=== PATIENT | female | born 1945 | race Asian ===

== ENCOUNTER 2018-01-29 06:53 | Day surgery (SDC) | payer OTHER ==
[2018-01-28 14:36] VITALS: BMI 25.3
[2018-01-29] MEDS ORDERED: LIDOCAINE HCL 2% (20ML MULTI-DOSE VIAL) NR ONE (07:49)
[2018-01-29] MEDS ORDERED: PROPOFOL 20 ML ONE ×2 (07:49)
[2018-01-29 09:01] VITALS: TEMP 97.8
[2018-01-29 10:06] VITALS: BP 121/66; PULSE 61
--- NOTE | 2018-01-30 15:45 | PATH ---
Surgical Pathology Report Patient Name: TORIE VELIZ [facility]. Rec. #: [id number] /Age/Gender: 1945 (Age: 72) / F Account: [id number] Location: U-ENDOSCOPY Taken: 01/29/2018 Received: 01/29/2018 Reported: 01/30/2018 Physicians: Yao Barnes M.D. 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 DUODENUM, SECOND PORTION AND DUODENAL BULB, BIOPSY: Duodenal mucosa withOUT SIGNIFICANT PATHOLOGIC findings. B. STOMACH, ANTRUM, BIOPSY: GASTRIC ANTRAL MUCOSA WITHOUT SIGNIFICANT PATHOLOGIC FINDINGS. IMMUNOHISTOCHEMICAL STAIN FOR H. PYLORI IS NEGATIVE. C. ESOPHAGUS, 33 CM, BIOPSY: COLUMNAR/GASTRIC OXYNTIC MUCOSA WITH EXTRAVASATED RED CELLS WITHIN LAMINA PROPRIA AND MILD CHRONIC INFLAMMATION. NO SQUAMOUS MUCOSA, INTESTINAL METAPLASIA OR DYSPLASIA IDENTIFIED. D. ESOPHAGUS, 32 CM, BIOPSY: COLUMNAR/GASTRIC CARDIAC TYPE MUCOSA WITH MILD CHRONIC INFLAMMATION. NO SQUAMOUS MUCOSA, INTESTINAL METAPLASIA, OR DYSPLASIA IDENTIFIED. E. 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 NO DYSPLASIA IDENTIFIED. F. MID ESOPHAGUS, BIOPSY: SQUAMOUS MUCOSA WITHOUT SIGNIFICANT PATHOLOGIC FINDINGS. G. CECUM, POLYP, POLYPECTOMY: TUBULAR ADENOMA. H. COLON, RIGHT, POLYP, POLYPECTOMY: TUBULAR ADENOMA. Electronically Signed Yaneth Shelton M.D. Gross Description A. Received in formalin, labeled "biopsy second portion of duodenum and bulb" are 3 [place], irregular portions of soft tissue ranging from 0.3-0.6 cm. in greatest dimension. The specimens are submitted in toto in one cassette. B. Received in formalin, labeled "biopsy antrum" are 3 [place], irregular portions of soft tissue ranging from 0.2-0.5 cm. in greatest dimension. The specimens are submitted in toto in one cassette. C. Received in formalin, labeled "esophagus 33 cm" are 2 [place], irregular portions of soft tissue averaging 0.4 cm. in greatest dimension. The specimens are submitted in toto in one cassette. D. Received in formalin, labeled "esophagus 32 cm" are 3 [place], irregular portions of soft tissue averaging 0.2 cm. in greatest dimension. The specimens are submitted in toto in one cassette. E. Received in formalin, labeled "esophagus 30 cm" are 3 [place], irregular portions of soft tissue ranging from 0.1-0.5 cm. in greatest dimension. The specimens are submitted in toto in one cassette. F. Received in formalin, labeled "mid esophagus biopsy" are 2 [place], irregular portions of soft tissue measuring 0.2 and 0.4 cm. in greatest dimension. The specimens are submitted in toto in one cassette. G. Received in formalin, labeled "polyp cecum" are 2 [place], irregular portions of soft tissue measuring 0.1 and 0.5 cm. in greatest dimension. The specimens are submitted in toto in one cassette. H. Received in formalin, labeled "polyp right colon" are 2 [place], irregular portions of soft tissue averaging 0.2 cm. in greatest dimension. The specimens are submitted in toto in one cassette. 01/29/2018 saudi01/29/2018
== END 2018-01-29 10:06 | disposition home or self-care (01) ==
LOC: JASU-ENDO 06:53
PROVIDERS: ATTEND Internal Medicine Gastroenterology
PROC: 0DBH8ZX Excision of Cecum, Via Natural or Artificial Opening Endoscopic, Diagnostic (ICD-10-PCS; 2018-01-29)
PROC: 0DB38ZX Excision of Lower Esophagus, Via Natural or Artificial Opening Endoscopic, Diagnostic (ICD-10-PCS; 2018-01-29)
PROC: 0DB68ZX Excision of Stomach, Via Natural or Artificial Opening Endoscopic, Diagnostic (ICD-10-PCS; 2018-01-29)
PROC: 0DB28ZX Excision of Middle Esophagus, Via Natural or Artificial Opening Endoscopic, Diagnostic (ICD-10-PCS; 2018-01-29)
PROC: 0DBK8ZX Excision of Ascending Colon, Via Natural or Artificial Opening Endoscopic, Diagnostic (ICD-10-PCS; principal; 2018-01-29 08:00)
DX: Z12.11 Encounter for screening for malignant neoplasm of colon (principal); D12.2 Benign neoplasm of ascending colon; D12.0 Benign neoplasm of cecum; K57.30 Diverticulosis of large intestine without perforation or abscess without bleeding; K64.8 Other hemorrhoids; K21.9 Gastro-esophageal reflux disease without esophagitis; K44.9 Diaphragmatic hernia without obstruction or gangrene; K25.9 Gastric ulcer, unspecified as acute or chronic, without hemorrhage or perforation; E11.9 Type 2 diabetes mellitus without complications; I10 Essential (primary) hypertension
CPT/HCPCS: 82962; 88305-TC; 88342-TC

== ENCOUNTER 2022-12-21 05:59 | Day surgery (SDC) | payer OTHER ==
[2022-12-19 10:04] VITALS: BMI 24.6
[2022-12-21 08:57] VITALS: TEMP 98.4
[2022-12-21 09:17] VITALS: BP 99/43
[2022-12-21 09:43] VITALS: PULSE 62; RESP 17
== END 2022-12-21 10:10 | disposition home or self-care (01) ==
LOC: JASU-ENDO 05:59
PROVIDERS: ATTEND Internal Medicine Gastroenterology
PROC: 0DJD8ZZ Inspection of Lower Intestinal Tract, Via Natural or Artificial Opening Endoscopic (ICD-10-PCS; principal; 2022-12-21 08:00)
DX: Z12.11 Encounter for screening for malignant neoplasm of colon (principal); K57.30 Diverticulosis of large intestine without perforation or abscess without bleeding; K63.89 Other specified diseases of intestine; K64.8 Other hemorrhoids; Z86.010 Personal history of colon polyps
CPT/HCPCS: 88305-TC; 88342-TC

== ENCOUNTER 2023-02-12 19:04 | Emergency (ER) | payer OTHER ==
[2023-02-12 19:07] VITALS: BP 117/48; PULSE 83; RESP 18; TEMP 100.9; BMI 25.1
[2023-02-12] MEDS ORDERED: SODIUM CHLORIDE 0.9% 500 ML INFUS.BAG IV ONE (21:31)
[2023-02-12] MEDS ORDERED: ACETAMINOPHEN 1000 MG/100 ML BAG IVPB ONE (21:31)
[2023-02-12] MEDS ORDERED: ACETAMINOPHEN INJECTION 100 ML IVPB ONE (21:49)
[2023-02-12 22:21] LABS: BASO % 0.7 % (0-2.0); EOS % 0.5 % (0-4.5); HEMATOCRIT 32.1 % (32.4-45.2); HEMOGLOBIN 10.6 GM/dL (10.7-15.3); LYMPH % 16.8 % (8-40); MCH 28.6 pg (25.7-33.7); MCHC 33.1 g/dl (32.0-36.0); MEAN CELL VOLUME 86.3 fl (80-96); MEAN PLT VOLUME 6.9 fl (7.5-11.1); PLATELET COUNT 159 10^3/uL (134-434); RBC 3.73 M/mm3 (3.60-5.2); RDW 14.2 % (11.6-15.6); WHITE BLOOD COUNT 6.1 K/mm3 (4.0-10.0)
[2023-02-12 22:23] LABS: INR 0.97 (0.83-1.09); PROTHROMBIN TIME (PATIENT) 11.3 SEC (9.7-13.0)
[2023-02-12 22:25] LABS: ACTIVATED PTT 33.6 SECONDS (25.2-36.5)
[2023-02-12 22:31] LABS: POTASSIUM 3.9 mmol/L (3.5-5.1)
[2023-02-12 22:33] LABS: CALCIUM 8.4 mg/dL (8.5-10.1)
[2023-02-12 22:34] LABS: ALBUMIN 3.4 g/dl (3.4-5.0); BLOOD UREA NITROGEN 14.2 mg/dL (7-18)
[2023-02-12 22:37] LABS: CREATININE 0.9 mg/dL (0.55-1.3)
[2023-02-12 22:38] LABS: BILIRUBIN,TOTAL 0.3 mg/dL (0.2-1); TOT PROT 6.3 g/dl (6.4-8.2)
[2023-02-13 00:32] LABS: URINE APPEARANCE CLEAR; URINE BILIRUBIN NEGATIVE (NEGATIVE); URINE COLOR YELLOW; URINE GLUCOSE (UA) NEGATIVE (NEGATIVE); URINE KETONE TRACE (NEGATIVE); URINE LEUK ESTERASE NEGATIVE (NEGATIVE); URINE NITRITE NEGATIVE (NEGATIVE); URINE PROTEIN NEGATIVE (NEGATIVE); URINE UROBILINOGEN 0.2 mg/dL (0.2-1.0)
[2023-02-13 00:35] LABS: EPI CELLS 1 /uL (0-25.1); HYALINE CASTS 0 /uL (0-3.1); URINE BACTERIA 5 /uL (0-1359); URINE RBC 7 /uL (0-23.9); URINE WBC 2 /uL (0-25.8)
== END 2023-02-13 00:29 | disposition home or self-care (01) ==
LOC: JER 19:04
PROC: 3E033NZ Introduction of Analgesics, Hypnotics, Sedatives into Peripheral Vein, Percutaneous Approach (ICD-10-PCS; principal; 2023-02-12)
DX: U07.1 COVID-19 (principal); R05.9 Cough, unspecified; R50.9 Fever, unspecified; M79.10 Myalgia, unspecified site; G47.00 Insomnia, unspecified
CPT/HCPCS: 0241U-QW; 36415; 71045-TC-FY; 80053; 81003; 82550; 83735; 84484; 85025; 85610; 85730; 87086; 99284-25

== ENCOUNTER 2024-04-14 12:17 | Emergency (ER) | payer OTHER ==
[2024-04-14 12:30] VITALS: RESP 16; TEMP 97.3; BMI 22.0
[2024-04-14] MEDS ORDERED: ACETAMINOPHEN 500 MG TABLET (FP) ONE (13:52)
[2024-04-14] MEDS: ACETAMINOPHEN 500 MG TABLET (FP) PO ONE (13:54)
[2024-04-14] MEDS ORDERED: KETOROLAC TROMETHAMINE 30 MG/1 ML VIAL ONE (14:26)
[2024-04-14] MEDS: KETOROLAC TROMETHAMINE 30 MG/1 ML VIAL IM ONE (14:32)
[2024-04-14] MEDS ORDERED: KETAMINE HCL 200 MG/20 ML VIAL IVPUSH ONE (14:49)
[2024-04-14] MEDS ORDERED: PROPOFOL 200 MG/20 ML VIAL IVPUSH ONE (14:49)
[2024-04-14] MEDS ORDERED: oxyCODONE HCL 5 MG TABLET ONE (17:09)
[2024-04-14 17:13] VITALS: BP 119/44; PULSE 63
[2024-04-14] MEDS: oxyCODONE HCL 5 MG TABLET PO ONE (17:13)
== END 2024-04-14 17:16 | disposition home or self-care (01) ==
LOC: JER 12:17
PROC: 3E0133Z Introduction of Anti-inflammatory into Subcutaneous Tissue, Percutaneous Approach (ICD-10-PCS; principal; 2024-04-14)
DX: S42.201A Unspecified fracture of upper end of right humerus, initial encounter for closed fracture (principal); S43.014A Anterior dislocation of right humerus, initial encounter; W01.0XXA Fall on same level from slipping, tripping and stumbling without subsequent striking against object, initial encounter
CPT/HCPCS: 73030-TC-RT-FY; 73200-TC-RT; 96372; 99283-25

== ENCOUNTER 2024-04-28 06:25 | Day surgery (SDC) | payer OTHER ==
[2024-04-28 06:31] VITALS: BMI 22.0
[2024-04-28] MEDS ORDERED: PROPOFOL 40 ML ONE (08:36)
[2024-04-28] MEDS ORDERED: MIDAZOLAM HCL 2 MG/2 ML SINGLE DOSE VIAL ONE (08:40)
[2024-04-28] MEDS ORDERED: FENTANYL CITRATE/PF 50 MCG/ML VIAL ONE ×2 (08:41→13:21)
[2024-04-28] MEDS ORDERED: ROPIVACAINE HCL/PF 100 MG/20 ML VIAL ONE (08:41)
[2024-04-28] MEDS ORDERED: LIDOCAINE 1% P/F 10 MG/ML VIAL ONE (08:42)
[2024-04-28] MEDS ORDERED: TRANEXAMIC ACID 1000 MG/10 ML VIAL ONE ×2 (09:14→09:45)
[2024-04-28] MEDS ORDERED: SODIUM CHLORIDE 0.9% P/F 10 ML VIAL IJ ONE (09:14)
[2024-04-28] MEDS ORDERED: VANCOMYCIN 1,000 MG VIAL (RESTRICTED TO ID ONLY) ONE ×2 (09:14→09:45)
[2024-04-28] MEDS ORDERED: LACTATED RINGERS SOLUTION 1,000 ML IV SCH (09:15)
[2024-04-28] MEDS ORDERED: ceFAZolin SODIUM 1 GM VIAL ONE (09:45)
[2024-04-28] MEDS ORDERED: ONDANSETRON 4 MG/2 ML VIAL IVPUSH PRN (11:00)
[2024-04-28] MEDS: VANCOMYCIN 1,000 MG VIAL (RESTRICTED TO ID ONLY) IVPB ONE (12:16)
[2024-04-28] MEDS: ACETAMINOPHEN 1000 MG/100 ML BAG IVPB ONE ×2 (13:15→17:48)
[2024-04-28] MEDS: FENTANYL CITRATE/PF 50 MCG/ML VIAL IVPUSH SCH (13:25)
[2024-04-28] MEDS ORDERED: MAG HYDROX/AL HYDROX/SIMETH 30 ML UNIT-DOSE CUP PO PRN (14:32)
[2024-04-28] MEDS: CEFAZOLIN 1 GM in DEXTROSE 5%-WATER - 50 ML IVPB SCH (17:49)
[2024-04-28] MEDS: LACTATED RINGERS SOLUTION 1,000 ML IV SCH (18:20)
[2024-04-28] MEDS: oxyCODONE HCL 5 MG TABLET PO PRN ×2 (18:31→21:47)
[2024-04-28] MEDS: GABAPENTIN 300 MG CAPSULE PO SCH (21:48)
[2024-04-28] MEDS: SENNOSIDES/DOCUSATE COMBO (SENNA PLUS) TABLET (UD) PO SCH (21:48)
[2024-04-28] MEDS: ATORVASTATIN CA 40 MG TABLET (FP) PO SCH (21:48)
[2024-04-28] MEDS: VANCOMYCIN/WATER FOR INJ (PEG) 1 GM/200 ML BAG IVPB ONE (21:53)
[2024-04-28] MEDS: ONDANSETRON 4 MG/2 ML VIAL IVPUSH PRN (21:54)
[2024-04-28] MEDS: ACETAMINOPHEN 1000 MG/100 ML BAG IVPB SCH (23:05)
[2024-04-29] MEDS: LEVOTHYROXINE NA 75 MCG TABLET (FP) PO SCH (06:00)
[2024-04-29 08:39] LABS: ALBUMIN 3.3 g/dl (3.4-5.0); BILIRUBIN,TOTAL 0.5 mg/dl (0.2-1); CALCIUM 8.4 mg/dl (8.5-10.1); CREATININE 0.6 mg/dl (0.6-1.3); POTASSIUM 3.9 mmol/L (3.5-5.1); TOT PROT 5.1 g/dl (6.4-8.2)
[2024-04-29] MEDS: ASPIRIN COATED 81 MG TABLET.EC PO SCH (09:23)
[2024-04-29] MEDS: MULTIVITAMINS (DAILY MVI) TABLET (FP) PO SCH (09:23)
[2024-04-29] MEDS: PANTOPRAZOLE 40 MG TABLET PO SCH (09:23)
[2024-04-29] MEDS: LOSARTAN POTASSIUM 50 MG TABLET PO SCH (09:40)
[2024-04-29] MEDS: amLODIPine BESYLATE 2.5 MG TABLET (FP) PO SCH (09:40)
[2024-04-29 10:44] LABS: BASO % 0.1 % (0-2.0); HEMATOCRIT 25.7 % (32.4-45.2); HEMOGLOBIN 8.5 GM/dL (10.7-15.3); LYMPH % 10.2 % (8-40); MCH 29.3 pg (25.7-33.7); MEAN CELL VOLUME 88.8 fl (80-96); MEAN PLT VOLUME 6.7 fl (7.5-11.1); MONO % 8.9 % (3.8-10.2); NEUT % 80.8 % (42.8-82.8); PLATELET COUNT 231 10^3/uL (134-434); RDW 14.3 % (11.6-15.6); WHITE BLOOD COUNT 8.4 K/mm3 (4.0-10.0)
[2024-04-29 13:31] VITALS: BP 110/59; PULSE 55; RESP 16; TEMP 98.2
== END 2024-04-29 13:47 | disposition home or self-care (01) ==
LOC: FER 06:25 → FM/S 06:58 → FASUSAT 06:58 → FM/S 07:55 → FER 07:55 → FASUSAT 07:59
PROC: 0RHJ08Z Insertion of Spacer into Right Shoulder Joint, Open Approach (ICD-10-PCS; principal; 2024-04-28 10:05)
DX: S42.201A Unspecified fracture of upper end of right humerus, initial encounter for closed fracture (principal); M75.21 Bicipital tendinitis, right shoulder; M19.011 Primary osteoarthritis, right shoulder; X58.XXXA Exposure to other specified factors, initial encounter; Y92.9 Unspecified place or not applicable; Y93.9 Activity, unspecified
CPT/HCPCS: 36415; 73030-TC-RT-FY; 80053; 85025; 86850; 86900; 86901; 88304-TC; 94760; 99285-25; C1713; C1776; J0131